=== PATIENT | female | born 1965 | race Caucasian/White ===

== ENCOUNTER → 2018-08-09 07:33 | Outpatient (CLI) | payer OTHER, SELFPAY ==
--- NOTE | 2018-08-09 07:36 | BI_ITS ---
MAMMOGRAPHY - BILATERAL SCREENING REASON FOR EXAM: Female, 52 years old. Routine annual screening examination. PERTINENT HISTORY: Mother with breast cancer. Remote right stereotactic breast biopsies. TECHNIQUE: Digital bilateral breast bambi (3D mammographic acquisition) in the CC and MLO projections. 2-D mediolateral oblique (MLO) and craniocaudad (CC) views of both breasts were obtained. CAD: Full Field Digital Mammography with Computer Added Detection was performed. COMPARISON: Comparison is made with prior operative examination dated July 06, 2017. FINDINGS: Breast Composition: The breasts are extremely dense, which lowers the sensitivity of mammography. There are no dominant masses or suspicious calcifications. 3 tissue clip markers are seen in the upper lateral portion of the right breast. Stable scattered microcalcifications in the upper outer aspect of the right breast. No other significant abnormalities are identified. There has been no significant change since the prior study. BI/SCREENING MAMM (CAD), BILAT IMPRESSION: Stable bilateral screening mammogram. Yearly follow-up mammogram recommended. (A) ASSESSMENT CATEGORY: BIRADS Category 2: Benign. A letter regarding these results will be sent to the patient by the facility within 30 days. Approximately 10% of breast cancers are not detected by mammography. A normal mammogram should not delay biopsy of a clinically suspicious abnormality. [id number] Electronically Signed: Bam Cardenas MD at 8:25 EST Tel [phone], Service support ,
[2018-08-15 14:11] LABS: HPV APTIMA, High Risk Negative (Negative)
== END ==
PROVIDERS: Family Provider Family Medicine; PCP Family Medicine; Referring Provider Obstetrics & Gynecology; Visit Provider Obstetrics & Gynecology
DX: Z12.31 Encounter for screening mammogram for malignant neoplasm of breast (principal); Z12.4 Encounter for screening for malignant neoplasm of cervix
CPT/HCPCS: 77063; 77067; 87624; 88175; G0145

== ENCOUNTER 2019-01-01 13:02 | Emergency (ER) | payer OTHER, SELFPAY ==
[2019-01-01 13:04] VITALS: BP 163/83; PULSE 80; RESP 16; TEMP 36.4; O2SAT 99; BMI 25.9
--- NOTE | 2019-01-01 13:55 | ED.VISSUMM ---
- ER Visit Summary Date of Service: 01/01/19 Chief Complaint: Abdominal pain History of Present Illness: The patient is a 53 F who presents with epigastric abdominal pain that began today. Patient states the pain is intermittent. Patient describes the pain as sharp and cramping. Patient states pain is over the epigastric area. Patient denies any relation with food. Patient states nothing makes it better or worse. Patient admits to nausea but denies any vomiting. Patient states she has been having some diarrhea today. Patient states she took 2 Tums tablets this morning. Patient states she also took a dose of Pepto-Bismol and a dose of Imodium this morning with no improvement. Patient denies any urinary complaints. Physical Examination: Vital signs are stable. Patient is afebrile. Patient is in no acute distress. Oral mucosa is pink and moist. Neck is supple. Trachea is midline. There is no JVD noted. Heart was regular rate and rhythm. Lungs are clear and equal bilateral. Abdomen is soft. Bowel sounds are normal. There is no tenderness. There is no guarding noted. There is no rebound. Test Results: CBC, comprehensive metabolic profile, and lipase were obtained and were within normal limits. Emergency Department Course and Treatment: Patient felt better on reevaluation. Patient was instructed to follow-up with her primary care physician in 5-7 days. Patient understood and was agreeable with the plan. All questions were answered. Disposition: Discharge home Impression: Epigastric abdominal pain This note was generated with [employer] dictation software. It may contain incorrect words, spelling, and punctuation that were not noted in review of the chart prior to signing ED Disposition - Plan for ED Patient: Disposition: Home or Assisted Living Diagnosis: Epigastric abdominal pain Instructions: ED Abdominal Pain Unkn Cause Referrals: Agapito Keene MD [Primary Care Provider] - 5-7 Days
[2019-01-01 14:22] LABS: Absolute Lymphocyte Count 2.01 X10^3/ul (0.83-4.51); Absolute Neutrophil Count 4.8 X10^3/uL (2.0-7.7); Basophil# 0.01 X10^3/uL; Basophil% 0.1 % (0-1); Eosinophil# 0.03 X10^3/uL; Eosinophils% 0.4 % (0-5); Hematocrit 38.8 % (37-47); Hemoglobin 12.9 g/dl (12.0-15.0); Lymphocyte # 2.01 X10^3/ul (4.0); Lymphocyte % 27.8 % (19-41); Mean Corp Hgb Conc 33.2 g/gl (32-36); Mean Corpuscular Hgb 29.5 pg (27.0-32.0); Mean Corpuscular Volume 88.6 fL (81-99); Monocyte# 0.39 X10^3/uL; Monocyte% 5.4 % (0-10); Neutrophil # 4.77 X10^3/uL (2.7-7.7); Neutrophil % 66.2 % (47-70); Platelet Count 228 K/mm3 (150-450); RBC Distribution Width CV 13.1 % (11.6-14.6); RBC Distribution Width SD 42.7 fl (35.1-43.9); Red Blood Count 4.38 M/mm3 (4.2-5.4); White Blood Count 7.2 K/mm3 (4.4-11.0)
[2019-01-01 14:25] LABS: POSITIVE COUNT NO; POSITIVE DIFFERENTIAL NO; POSITIVE MORPHOLOGY NO
[2019-01-01 14:33] LABS: AST(SGOT) 18 U/L (15-37); Alanine Aminotransfer ALT/SGPT 24 U/L (13-56); Albumin, Serum 3.7 g/dL (3.2-5.0); Alkaline Phosphatase 64 U/L (45-117); Anion Gap 8 (5-15); BUN 15 mg/dL (7-18); BUN/Creat Ratio 16.7 RATIO (10-20); Calcium,Total 8.9 mg/dL (8.5-10.1); Chloride 105 mmol/L (98-107); EST Glomerular Filtration Rate 70 mL/min (>60); Est Glom Filt Rate - Afr Amer 85 mL/min (>60); Estimated Creatinine Clearance 51.92 ml/min; Globulin 3.8 g/dL (2.2-4.2); Glucose 83 mg/dL (74-106); Lipase 142 U/L (73-393); Potassium 3.6 mmol/L (3.5-5.1); Protein, Total 7.5 g/dL (6.4-8.2); Sodium Level 140 mmol/L (136-145)
[2019-01-01 14:59] VITALS: BP 137/78; PULSE 78; RESP 16; O2SAT 100
== END 2019-01-01 15:08 | disposition home or self-care (01) ==
PROVIDERS: Emergency Provider Emergency Medicine; Family Provider Family Medicine; PCP Family Medicine
DX: R10.13 Epigastric pain (principal); R11.0 Nausea; R07.9 Chest pain, unspecified
CPT/HCPCS: 80053; 83690; 85025; 99283; A4216

== ENCOUNTER → 2019-01-27 | Outpatient (CLI) | payer OTHER, SELFPAY ==
[2019-01-08 14:01] VITALS: BMI 25.9
[2019-01-27 11:05] LABS: Cholesterol 218 mg/dL (200); High Density Lipoprotein 60 mg/dL; Triglycerides 86 mg/dL; Very Low Density Lipoprotein 17 mg/dL (5-40)
== END | disposition home or self-care (01) ==
PROVIDERS: Family Provider Internal Medicine; PCP Internal Medicine; Referring Provider Internal Medicine; Visit Provider Internal Medicine
DX: I10 Essential (primary) hypertension (principal)
CPT/HCPCS: 36415; 80061

== ENCOUNTER → 2019-08-13 09:06 | Outpatient (CLI) | payer OTHER, SELFPAY ==
[2019-08-13 08:23] VITALS: BMI 25.9
--- NOTE | 2019-08-13 09:21 | EKG12_ITS ---
Test Reason : ROUTINE Blood Pressure : / mmHG Vent. Rate : 062 BPM Atrial Rate : 062 BPM P-R Int : 126 ms QRS Dur : 084 ms QT Int : 404 ms P-R-T Axes : 035 035 038 degrees QTc Int : 410 ms Normal sinus rhythm Normal ECG Confirmed by JEFF WILLIAM, FORTINO ([id number]), editor publications CHERELLE SALEH ([id number]) on 08/14/2019 1:56:06 PM Referred By: Guillaume Dasilva Confirmed By:FORTINO AGUILAR MD
[2019-08-13 10:32] LABS: Anion Gap 6 (5-15); BUN 18 mg/dL (7-18); BUN/Creat Ratio 18.9 RATIO (10-20); Calcium,Total 9.1 mg/dL (8.5-10.1); Chloride 102 mmol/L (98-107); Creatinine, Serum 0.95 mg/dL (0.55-1.02); EST Glomerular Filtration Rate 65 mL/min (>60); Est Glom Filt Rate - Afr Amer 79 mL/min (>60); Glucose 87 mg/dL (74-106); Potassium 3.3 mmol/L (3.5-5.1); Sodium Level 138 mmol/L (136-145)
== END ==
PROVIDERS: Family Provider Internal Medicine; PCP Internal Medicine; Referring Provider Internal Medicine; Visit Provider Internal Medicine
DX: I10 Essential (primary) hypertension (principal)
CPT/HCPCS: 36415; 80048; 93005

== ENCOUNTER → 2019-10-10 16:28 | Outpatient (CLI) | payer OTHER, SELFPAY ==
[2019-10-10 16:28] VITALS: BMI 25.7
[2019-10-10 17:23] LABS: Anion Gap 4 (5-15); BUN 22 mg/dL (7-18); BUN/Creat Ratio 17.1 RATIO (10-20); Calcium,Total 9.4 mg/dL (8.5-10.1); Chloride 102 mmol/L (98-107); Creatinine, Serum 1.29 mg/dL (0.55-1.02); EST Glomerular Filtration Rate 46 mL/min (>60); Est Glom Filt Rate - Afr Amer 55 mL/min (>60); Glucose 90 mg/dL (74-106); Potassium 3.1 mmol/L (3.5-5.1); Sodium Level 138 mmol/L (136-145)
== END ==
PROVIDERS: Family Provider Internal Medicine; PCP Internal Medicine; Referring Provider Nurse Practitioner Family; Visit Provider Nurse Practitioner Family
DX: I10 Essential (primary) hypertension (principal)
CPT/HCPCS: 36415; 80048

== ENCOUNTER → 2019-10-25 16:32 | Outpatient (CLI) | payer OTHER, SELFPAY ==
[2019-10-10 16:28] VITALS: BMI 25.7
[2019-10-25 17:25] LABS: Anion Gap 5 (5-15); BUN 21 mg/dL (7-18); BUN/Creat Ratio 19.4 RATIO (10-20); Calcium,Total 9.2 mg/dL (8.5-10.1); Chloride 99 mmol/L (98-107); Creatinine, Serum 1.08 mg/dL (0.55-1.02); EST Glomerular Filtration Rate 56 mL/min (>60); Est Glom Filt Rate - Afr Amer 68 mL/min (>60); Glucose 91 mg/dL (74-106); Potassium 3.1 mmol/L (3.5-5.1); Sodium Level 137 mmol/L (136-145)
== END ==
PROVIDERS: PCP Internal Medicine; Referring Provider Nurse Practitioner Family; Visit Provider Nurse Practitioner Family
DX: I10 Essential (primary) hypertension (principal)
CPT/HCPCS: 36415; 80048

== ENCOUNTER → 2019-11-28 16:32 | Outpatient (CLI) | payer OTHER, SELFPAY ==
[2019-10-10 16:28] VITALS: BMI 25.7
[2019-11-28 17:28] LABS: Anion Gap 4 (5-15); BUN 15 mg/dL (7-18); BUN/Creat Ratio 15.3 RATIO (10-20); Calcium,Total 9.3 mg/dL (8.5-10.1); Chloride 102 mmol/L (98-107); Creatinine, Serum 0.98 mg/dL (0.55-1.02); EST Glomerular Filtration Rate 63 mL/min (>60); Est Glom Filt Rate - Afr Amer 76 mL/min (>60); Glucose 85 mg/dL (74-106); Potassium 3.3 mmol/L (3.5-5.1); Sodium Level 137 mmol/L (136-145)
== END ==
PROVIDERS: PCP Internal Medicine; Referring Provider Nurse Practitioner Family; Visit Provider Nurse Practitioner Family
DX: I10 Essential (primary) hypertension (principal)
CPT/HCPCS: 36415; 80048

== ENCOUNTER → 2020-02-20 16:45 | Outpatient (CLI) | payer OTHER, SELFPAY ==
[2019-10-10 16:28] VITALS: BMI 25.7
[2020-02-20 17:44] LABS: Anion Gap 7 (5-15); BUN 17 mg/dL (7-18); BUN/Creat Ratio 18.2 RATIO (10-20); Chloride 101 mmol/L (98-107); Creatinine, Serum 0.94 mg/dL (0.55-1.02); EST Glomerular Filtration Rate 66 mL/min (>60); Est Glom Filt Rate - Afr Amer 80 mL/min (>60); Glucose 90 mg/dL (74-106); Potassium 3.8 mmol/L (3.5-5.1); Sodium Level 137 mmol/L (136-145)
== END ==
PROVIDERS: PCP Internal Medicine; Referring Provider Nurse Practitioner Family; Visit Provider Nurse Practitioner Family
DX: I10 Essential (primary) hypertension (principal)
CPT/HCPCS: 36415; 80048

== ENCOUNTER → 2020-05-02 06:38 | Outpatient (CLI) | payer OTHER, SELFPAY ==
[2020-04-03 13:54] VITALS: BMI 25.7
[2020-05-02 08:34] LABS: Anion Gap 3 (5-15); BUN 18 mg/dL (7-18); BUN/Creat Ratio 15.5 RATIO (10-20); Calcium,Total 8.9 mg/dL (8.5-10.1); Chloride 107 mmol/L (98-107); Cholesterol 197 mg/dL (200); Creatinine, Serum 1.16 mg/dL (0.55-1.02); EST Glomerular Filtration Rate 52 mL/min (>60); Est Glom Filt Rate - Afr Amer 63 mL/min (>60); Glucose 86 mg/dL (74-106); High Density Lipoprotein 52 mg/dL; Potassium 3.6 mmol/L (3.5-5.1); Sodium Level 140 mmol/L (136-145); Triglycerides 120 mg/dL; Very Low Density Lipoprotein 24 mg/dL (5-40)
== END ==
PROVIDERS: PCP Internal Medicine; Referring Provider Internal Medicine; Visit Provider Internal Medicine
DX: I10 Essential (primary) hypertension (principal); E78.5 Hyperlipidemia, unspecified
CPT/HCPCS: 36415; 80048; 80061

== ENCOUNTER → 2020-08-29 10:12 | Outpatient (CLI) | payer OTHER, SELFPAY ==
[2020-08-29 11:29] LABS: Anion Gap 3 (5-15); BUN 16 mg/dL (7-18); BUN/Creat Ratio 17.1 RATIO (10-20); Calcium,Total 9.1 mg/dL (8.5-10.1); Chloride 104 mmol/L (98-107); Creatinine, Serum 0.94 mg/dL (0.55-1.02); EST Glomerular Filtration Rate 66 mL/min (>60); Est Glom Filt Rate - Afr Amer 80 mL/min (>60); Glucose 83 mg/dL (74-106); Potassium 3.6 mmol/L (3.5-5.1); Sodium Level 139 mmol/L (136-145)
== END ==
PROVIDERS: PCP Internal Medicine; Referring Provider Internal Medicine; Visit Provider Internal Medicine
DX: I10 Essential (primary) hypertension (principal)
CPT/HCPCS: 36415; 80048

== ENCOUNTER → 2020-10-01 10:58 | Outpatient (CLI) | payer OTHER, SELFPAY ==
[2020-09-24 18:23] VITALS: BMI 26.2
--- NOTE | 2020-10-01 11:14 | EKG12_ITS ---
Test Reason : HTN,PALPS Blood Pressure : / mmHG Vent. Rate : 054 BPM Atrial Rate : 054 BPM P-R Int : 120 ms QRS Dur : 084 ms QT Int : 418 ms P-R-T Axes : 034 041 032 degrees QTc Int : 396 ms Sinus bradycardia Otherwise normal ECG Confirmed by KATHY WILLIAM, DEWEY ([id number]), early childhood aide classroom BEATA GALVIN ([id number]) on 10/02/2020 10:25:44 AM Referred By: Guillaume Dasilva Confirmed By:CIRO CHAVEZ MD
[2020-10-01 11:44] LABS: Absolute Lymphocyte Count 2.37 X10^3/uL (0.83-4.51); Absolute Neutrophil Count 2.3 X10^3/uL (2.0-7.7); Basophil# 0.02 X10^3/uL; Basophil% 0.4 % (0-1); Eosinophil# 0.08 X10^3/uL; Eosinophils% 1.5 % (0-5); Hematocrit 37.9 % (37-47); Hemoglobin 12.2 g/dL (12.0-15.0); Lymphocyte # 2.37 X10^3/ul (4.0); Lymphocyte % 45.7 % (19-41); Mean Corp Hgb Conc 32.2 g/dL (32-36); Mean Corpuscular Hgb 29.2 pg (27.0-32.0); Mean Corpuscular Volume 90.7 fL (81-99); Mean Platelet Vol. 8.7 fl (6.2-12.0); Monocyte# 0.43 X10^3/uL; Monocyte% 8.3 % (0-10); NRBC Flagged by Analyzer 0 % (0-5); Neutrophil # 2.27 X10^3/uL (2.7-7.7); Neutrophil % 43.7 % (47-70); Platelet Count 197 K/mm3 (150-450); RBC Distribution Width CV 12.7 % (11.6-14.6); RBC Distribution Width SD 41.8 fl (35.1-43.9); Red Blood Count 4.18 M/mm3 (4.2-5.4); White Blood Count 5.2 K/mm3 (4.4-11.0)
[2020-10-01 12:09] LABS: AST(SGOT) 22 U/L (15-37); Alanine Aminotransfer ALT/SGPT 36 U/L (13-56); Albumin, Serum 3.6 g/dL (3.2-5.0); Alkaline Phosphatase 56 U/L (45-117); Anion Gap 3 (5-15); BUN 12 mg/dL (7-18); BUN/Creat Ratio 12.3 RATIO (10-20); Calcium,Total 8.9 mg/dL (8.5-10.1); Chloride 107 mmol/L (98-107); Creatinine, Serum 0.97 mg/dL (0.55-1.02); EST Glomerular Filtration Rate 63 mL/min (>60); Est Glom Filt Rate - Afr Amer 77 mL/min (>60); Globulin 3.7 g/dL (2.2-4.2); Glucose 84 mg/dL (74-106); Potassium 4.2 mmol/L (3.5-5.1); Protein, Total 7.3 g/dL (6.4-8.2); Sodium Level 140 mmol/L (136-145); T4 Free Direct 0.87 ng/dL (0.76-1.46); Thyroid Stim Hormone (TSH) 5.05 uIU/mL (0.358-3.74)
== END ==
PROVIDERS: PCP Internal Medicine; Referring Provider Internal Medicine; Visit Provider Internal Medicine
DX: R00.2 Palpitations (principal); F32.9 Major depressive disorder, single episode, unspecified; F41.9 Anxiety disorder, unspecified; I10 Essential (primary) hypertension
CPT/HCPCS: 36415; 80053; 84439; 84443; 85025; 93005

== ENCOUNTER → 2020-10-21 17:30 | Outpatient (CLI) | payer OTHER, SELFPAY ==
[2020-09-24 18:23] VITALS: BMI 26.2
--- NOTE | 2020-10-21 16:44 | BI_ITS ---
MAMMOGRAPHY - BILATERAL SCREENING REASON FOR EXAM: Female, 54 years old. Routine annual screening examination. PERTINENT HISTORY: Mother with breast cancer. Prior right stereotactic breast biopsy. TECHNIQUE: Digital bilateral breast wm (3D mammographic acquisition) in the CC and MLO projections. 2-D mediolateral oblique (MLO) and craniocaudad (CC) views of both breasts were obtained. CAD: Full Field Digital Mammography with Computer Added Detection was performed. COMPARISON: Comparison is made with prior study dated 08/09/2018. FINDINGS: Breast Composition: The breasts are extremely dense, which lowers the sensitivity of mammography. There are no dominant masses or suspicious calcifications. 3 tissue clip markers are once again seen in the upper lateral portion of the right breast. No other significant abnormalities are identified. There has been no significant change since the prior study. BI/SCRN MAMM (CAD)W/WM BILAT IMPRESSION: Stable bilateral screening mammogram. Yearly follow-up mammogram recommended. (A) ASSESSMENT CATEGORY: BIRADS Category 2: Benign. A letter regarding these results will be sent to the patient by the facility within 30 days. Approximately 10% of breast cancers are not detected by mammography. A normal mammogram should not delay biopsy of a clinically suspicious abnormality. [id number] Electronically Signed: Bam Cardenas MD at 8:37 EST , Service support ,
== END ==
PROVIDERS: PCP Internal Medicine; Referring Provider Nurse Practitioner Women's Health; Visit Provider Nurse Practitioner Women's Health
DX: Z12.31 Encounter for screening mammogram for malignant neoplasm of breast (principal)
CPT/HCPCS: 77063; 77067

== ENCOUNTER → 2020-11-22 10:20 | Outpatient (CLI) | payer OTHER, SELFPAY ==
[2020-09-24 18:23] VITALS: BMI 26.2
[2020-11-22 11:53] LABS: T4 Free Direct 0.81 ng/dL (0.76-1.46); Thyroid Stim Hormone (TSH) 5.49 uIU/mL (0.358-3.74)
[2020-11-24 13:30] LABS: Anion Gap 6 (5-15); BUN 15 mg/dL (7-18); BUN/Creat Ratio 14.9 RATIO (10-20); Chloride 106 mmol/L (98-107); Creatinine, Serum 1.01 mg/dL (0.55-1.02); EST Glomerular Filtration Rate 61 mL/min (>60); Est Glom Filt Rate - Afr Amer 73 mL/min (>60); Glucose 74 mg/dL (74-106); Potassium 3.9 mmol/L (3.5-5.1); Sodium Level 140 mmol/L (136-145)
== END ==
PROVIDERS: PCP Internal Medicine; Referring Provider Internal Medicine; Visit Provider Internal Medicine
DX: R94.6 Abnormal results of thyroid function studies (principal)
CPT/HCPCS: 36415; 80048; 84439; 84443

== ENCOUNTER → 2021-05-23 08:43 | Outpatient (CLI) | payer OTHER, SELFPAY ==
[2021-05-23 09:41] LABS: Absolute Lymphocyte Count 2.82 X10^3/uL (0.83-4.51); Absolute Neutrophil Count 1.9 X10^3/uL (2.0-7.7); Basophil# 0.03 X10^3/uL; Basophil% 0.6 % (0-1); Eosinophil# 0.08 X10^3/uL; Eosinophils% 1.5 % (0-5); Hematocrit 38.1 % (37-47); Hemoglobin 12.6 g/dL (12.0-15.0); Lymphocyte # 2.82 X10^3/ul (0.83-4.51); Mean Corp Hgb Conc 33.1 g/dL (32-36); Mean Corpuscular Hgb 30.5 pg (27.0-32.0); Mean Corpuscular Volume 92.3 fL (81-99); Mean Platelet Vol. 9.2 fl (6.2-12.0); Monocyte# 0.41 X10^3/uL; Monocyte% 7.9 % (0-10); NRBC Flagged by Analyzer 0 % (0-5); Neutrophil # 1.86 X10^3/uL (2.7-7.7); Neutrophil % 35.6 % (47-70); Platelet Count 205 K/mm3 (150-450); RBC Distribution Width SD 41.1 fl (35.1-43.9); Red Blood Count 4.13 M/mm3 (4.2-5.4); White Blood Count 5.2 K/mm3 (4.4-11.0)
[2021-05-23 10:13] LABS: AST(SGOT) 21 U/L (15-37); Alanine Aminotransfer ALT/SGPT 28 U/L (13-56); Albumin, Serum 3.8 g/dL (3.2-5.0); Alkaline Phosphatase 51 U/L (45-117); Anion Gap 8 (5-15); BUN 18 mg/dL (7-18); BUN/Creat Ratio 18.4 RATIO (10-20); Calcium,Total 9.1 mg/dL (8.5-10.1); Chloride 106 mmol/L (98-107); Cholesterol 218 mg/dL (200); Creatinine, Serum 0.98 mg/dL (0.55-1.02); EST Glomerular Filtration Rate 63 mL/min (>60); Est Glom Filt Rate - Afr Amer 76 mL/min (>60); Glucose 87 mg/dL (74-106); High Density Lipoprotein 54 mg/dL; Potassium 3.9 mmol/L (3.5-5.1); Protein, Total 7.8 g/dL (6.4-8.2); Sodium Level 143 mmol/L (136-145); T4 Free Direct 0.88 ng/dL (0.76-1.46); Thyroid Stim Hormone (TSH) 6.75 uIU/mL (0.358-3.74); Triglycerides 90 mg/dL; Very Low Density Lipoprotein 18 mg/dL (5-40)
== END ==
PROVIDERS: PCP Internal Medicine; Visit Provider Internal Medicine
DX: I10 Essential (primary) hypertension (principal); E78.5 Hyperlipidemia, unspecified; E03.8 Other specified hypothyroidism
CPT/HCPCS: 36415; 80053; 80061; 84439; 84443; 85025

== ENCOUNTER 2021-10-22 07:41 | Outpatient (CLI) | payer OTHER, SELFPAY ==
--- NOTE | 2021-10-22 07:44 | BI_ITS ---
MAMMOGRAPHY - BILATERAL SCREENING REASON FOR EXAM: Female, 55 years old. Routine annual screening examination. PERTINENT HISTORY: Mother with breast cancer. Prior right stereotactic breast biopsy. TECHNIQUE: Digital bilateral breast wm (3D mammographic acquisition) in the CC and MLO projections. 2-D mediolateral oblique (MLO) and craniocaudad (CC) views of both breasts were obtained. CAD: Full Field Digital Mammography with Computer Added Detection was performed. COMPARISON: Comparison is made with prior study dated 10/21/2020 and 08/09/2018. FINDINGS: Breast Composition: The breasts are extremely dense, which lowers the sensitivity of mammography. There are no dominant masses or suspicious calcifications. 3 tissue clip markers are once again seen in the upper lateral portion of the right breast. No other significant abnormalities are identified. There has been no significant change since the prior study. BI/SCRN MAMM (CAD)W/WM BILAT IMPRESSION: Stable bilateral screening mammogram. Yearly follow-up mammogram recommended. (A) ASSESSMENT CATEGORY: BIRADS Category 2: Benign. A letter regarding these results will be sent to the patient by the facility within 30 days. Approximately 10% of breast cancers are not detected by mammography. A normal mammogram should not delay biopsy of a clinically suspicious abnormality. [id number] Electronically Signed: Bam Cardenas MD at 9:41 EST , Service support ,
[2021-10-22 09:10] LABS: Anion Gap 4 (5-15); BUN 17 mg/dL (7-18); BUN/Creat Ratio 16.8 RATIO (10-20); Calcium,Total 9.5 mg/dL (8.5-10.1); Chloride 107 mmol/L (98-107); Cholesterol 235 mg/dL (200); Creatinine, Serum 1.01 mg/dL (0.55-1.02); EST Glomerular Filtration Rate 60 mL/min (>60); Est Glom Filt Rate - Afr Amer 73 mL/min (>60); Glucose 88 mg/dL (74-106); High Density Lipoprotein 66 mg/dL; Potassium 3.8 mmol/L (3.5-5.1); Sodium Level 140 mmol/L (136-145); T4 Free Direct 0.88 ng/dL (0.76-1.46); Thyroid Stim Hormone (TSH) 8.22 uIU/mL (0.358-3.74); Triglycerides 98 mg/dL; Very Low Density Lipoprotein 20 mg/dL (5-40)
[2021-10-27 16:55] LABS: Aldosterone, Serum 9.4 ng/dL (0.0-30.0)
== END 2021-10-22 23:59 | disposition short-term general hospital (02) ==
PROVIDERS: PCP Family Medicine; Referring Provider Nurse Practitioner Women's Health; Visit Provider Nurse Practitioner Women's Health
DX: Z12.31 Encounter for screening mammogram for malignant neoplasm of breast (principal); E87.6 Hypokalemia; Z13.6 Encounter for screening for cardiovascular disorders; I10 Essential (primary) hypertension; R68.89 Other general symptoms and signs
CPT/HCPCS: 36415; 77063; 77067; 80048; 80061; 82088; 84439; 84443

== ENCOUNTER → 2022-01-28 | Outpatient (CLI) | payer OTHER, SELFPAY ==
[2022-01-28 10:10] LABS: Absolute Lymphocyte Count 2.56 X10^3/uL (0.83-4.51); Absolute Neutrophil Count 2.4 X10^3/uL (2.0-7.7); Basophil# 0.02 X10^3/uL; Basophil% 0.4 % (0-1); Eosinophil# 0.07 X10^3/uL; Eosinophils% 1.3 % (0-5); Hematocrit 37.6 % (37-47); Hemoglobin 12.6 g/dL (12.0-15.0); Lymphocyte # 2.56 X10^3/ul (0.83-4.51); Lymphocyte % 45.7 % (19-41); Mean Corp Hgb Conc 33.5 g/dL (32-36); Mean Corpuscular Hgb 30.6 pg (27.0-32.0); Mean Corpuscular Volume 91.3 fL (81-99); Mean Platelet Vol. 8.9 fl (6.2-12.0); Monocyte# 0.55 X10^3/uL; Monocyte% 9.8 % (0-10); NRBC Flagged by Analyzer 0 % (0-5); Neutrophil # 2.39 X10^3/uL (2.7-7.7); Neutrophil % 42.6 % (47-70); Platelet Count 228 K/mm3 (150-450); RBC Distribution Width CV 11.9 % (11.6-14.6); RBC Distribution Width SD 40.1 fl (35.1-43.9); Red Blood Count 4.12 M/mm3 (4.2-5.4); White Blood Count 5.6 K/mm3 (4.4-11.0)
[2022-01-28 10:42] LABS: ALB/GLOB Ratio 0.9 RATIO (0.9-2.4); AST(SGOT) 22 U/L (15-37); Alanine Aminotransfer ALT/SGPT 33 U/L (13-56); Albumin, Serum 3.5 g/dL (3.2-5.0); Alkaline Phosphatase 69 U/L (45-117); Anion Gap 4 (5-15); BUN 16 mg/dL (7-18); BUN/Creat Ratio 18.2 RATIO (10-20); Calcium,Total 9.1 mg/dL (8.5-10.1); Chloride 108 mmol/L (98-107); Creatinine, Serum 0.88 mg/dL (0.55-1.02); EST Glomerular Filtration Rate 71 mL/min (>60); Est Glom Filt Rate - Afr Amer 86 mL/min (>60); Globulin 3.7 g/dL (2.2-4.2); Glucose 84 mg/dL (74-106); Potassium 3.8 mmol/L (3.5-5.1); Protein, Total 7.2 g/dL (6.4-8.2); Sodium Level 140 mmol/L (136-145)
== END | disposition home or self-care (01) ==
PROVIDERS: PCP Family Medicine; Referring Provider Nurse Practitioner Adult Health; Visit Provider Nurse Practitioner Adult Health
DX: R10.13 Epigastric pain (principal)
CPT/HCPCS: 36415; 80053; 85025

== ENCOUNTER → 2022-02-16 | Outpatient (CLI) | payer OTHER, SELFPAY ==
--- NOTE | 2022-02-16 07:57 | CT_ITS ---
STUDY: CT ABDOMEN AND PELVIS WITH CONTRAST REASON FOR EXAM: Female, 56 years old. Recurrent epigastric pain, early satiety, diarrhea RADIATION DOSAGE (If Supplied By Facility): CTDIvol = ( 11.92 ) mGy, DLP = ( 483.84 ) mGycm TECHNIQUE: Transaxial images were obtained from the dome of the diaphragm to the symphysis pubis with oral contrast. Oral and amp;amp; IV Readi-CAT and amp;amp; 100mL Isovue-300 was administered. Sagittal and coronal images were reconstructed. Individualized dose optimization techniques were used for this CT. COMPARISON: None. FINDINGS: The visualized lung bases are unremarkable. The visualized portions of the heart are within normal limits. There is decreased attenuation of the liver consistent with steatosis. Normal gallbladder and extrahepatic biliary system. Normal spleen. Normal pancreas. Normal bilateral adrenal glands. Normal right kidney. Normal left kidney. Normal visualized stomach. Normal small intestine. Normal colon. The appendix is visualized and appears normal. There is scattered atherosclerotic calcification of the abdominal aorta, without a demonstrated aneurysm. Normal inferior vena cava. There is borderline retroperitoneal lymphadenopathy with enlarged nodes no greater than 10mm in the short axis diameter. Normal urinary bladder. There are bilateral tubal ligation clips. Normal abdominal wall. Normal osseous structures. CT/Abdomen/Pelvis WITH Contrast IMPRESSION: No acute abnormality is seen. Electronically Signed: Bam Cardenas MD at 10:04 EDT ,
== END | disposition home or self-care (01) ==
PROVIDERS: PCP Family Medicine; Visit Provider Nurse Practitioner Adult Health
DX: R10.13 Epigastric pain (principal); R68.81 Early satiety; R19.7 Diarrhea, unspecified
CPT/HCPCS: 74177; Q9967

== ENCOUNTER → 2022-02-18 | Outpatient (CLI) | payer OTHER, SELFPAY ==
[2022-02-18 08:55] LABS: Erythrocyte Sedimentation Rate 27 mm/hr (0-30)
[2022-02-18 09:22] LABS: Amylase 80 U/L (25-115); CRP < 2.90 mg/L (0.0-3.0); Cholesterol 205 mg/dL (200); GGTP 7 U/L (5-55); High Density Lipoprotein 55 mg/dL; LDH 176 U/L (84-246); Lipase 156 U/L (73-393); Thyroid Stim Hormone (TSH) 0.54 uIU/mL (0.358-3.74); Triglycerides 73 mg/dL; Very Low Density Lipoprotein 15 mg/dL (5-40)
[2022-02-19 15:08] LABS: Anti-Centromere B Ab <0.2 AI (0.0-0.9); Anti-Chromatin <0.2 AI (0.0-0.9); Anti-Jo <0.2 AI (0.0-0.9); Anti-Scleroderma-70 AB <0.2 AI (0.0-0.9); RNP Ab <0.2 AI (0.0-0.9); SJOGREN'S Anti-SS-A test 0.2 AI (0.0-0.9); SJOGREN'S Anti-SS-B test < 0.2 AI (0.0-0.9); Smith Ab <0.2 AI (0.0-0.9)
[2022-02-19 16:19] LABS: Anti-dsDNA Ab 2 IU/mL (0-9)
[2022-03-02 09:07] LABS: Endomysial Antibody IgA Negative (Negative); Immunoglobulin A 265 mg/dL (87-352)
[2022-03-02 10:38] LABS: Gastrin, Serum < 10 pg/mL (0-115); Renin, Plasma 0.292 ng/mL/hr (0.167-5.380); t-Transglutaminase IgA <2 U/mL (0-3)
== END | disposition home or self-care (01) ==
LOC: PAVLAB 08:21
PROVIDERS: PCP Family Medicine; Referring Provider Nurse Practitioner Adult Health; Visit Provider Nurse Practitioner Adult Health
DX: I10 Essential (primary) hypertension (principal); E87.6 Hypokalemia; E03.9 Hypothyroidism, unspecified; E78.2 Mixed hyperlipidemia; Z13.6 Encounter for screening for cardiovascular disorders
CPT/HCPCS: 36415; 80061; 82088; 82150; 82784; 82941; 82977; 83516; 83615; 83690; 84244; 84443; 85652; 86140; 86225; 86235; 86255

== ENCOUNTER → 2022-03-18 | Outpatient (CLI) | payer OTHER, SELFPAY ==
[2022-03-28 07:45] LABS: H. PYLORI STOOL AG Negative (Negative); Pancreatic Elastase, Fecal 306 (>200)
== END | disposition home or self-care (01) ==
LOC: LABSPEC 09:38
PROVIDERS: PCP Family Medicine; Referring Provider Nurse Practitioner Adult Health; Visit Provider Nurse Practitioner Adult Health
DX: R10.13 Epigastric pain (principal)
CPT/HCPCS: 82653; 82705; 83630; 83993

== ENCOUNTER 2022-04-22 05:25 | Day surgery (SDC) | payer OTHER, SELFPAY ==
[2022-04-22] VITALS (7 sets, daily range): BP systolic 98–128; BP diastolic 57–88; PULSE 60–78; RESP 16–18; TEMP 36.1–36.9; O2SAT 95–100; BMI 25.7
--- NOTE | 2022-04-22 | COLBX_PTH ---
PATIENT: JENNIFER MAZARIEGOS LOC: EN U#:[id number] AGE/SX: 56/F ROOM: RE04/22/[address]: Dr. Rashad Britt DO : 1965 BED: DIS: 04/22/2022 SPEC #: [id number] RECD: 04/22/22 10:41 STATUS: ION DONOVAN #: [id number] RAMÍREZ: 04/22/22 00:[address]: Rashad Britt DEPT: SURGICAL PATHOLOGY RECD BY: Devonte Costa ENTERED: 04/22/22 10:43 SP TYPE: COLON BX OTHR DR: Dr. Leighton Alexander MD Tissues: A - Duodenum, NOS B - Pylorus C - Gastric mucous membrane D - Gastric mucous membrane E - Esophageal mucous membrane F - Ileum, NOS G - COLON BIOPSY Procedures: Special Stain Group II Surgery Specimen Level IV Alcian Blue/PAS (control) HEADER OPERATION: Colonoscopy with biopsies, EGD with biopsies ([facility]) PRE-OP DIAGNOSIS: Epigastric pain, diarrhea, early satiety TISSUE SUBMITTED: A ? Duodenum biopsy, B ? Pylorus biopsy, C ? Gastric body biopsy, D ? Gastric cardia biopsy, E ? Distal esophagus biopsy, F ? Terminal ileum biopsy, G ? Random colon biopsy MICROSCOPIC DIAGNOSIS A. Duodenum, biopsy: Mild nonspecific chronic inflammation. B. Gastric pylorus, biopsy: Chronic gastritis. See comment. C. Gastric body, biopsy: Chronic gastritis, moderate to severe. D. Gastric cardia, biopsy: Chronic gastritis. E. Distal esophagus, biopsy: Gastric mucosa with chronic inflammation. No evidence of goblet cell metaplasia. See comment. F. Terminal ileum, biopsy: No pathologic change. G. Colon, random biopsy: Focal chronic active gastritis. See comment. AM:ivelisse 04/23/2022 COMMENT B. The results of immunohistochemistry for Helicobacter pylori will be reported separately ([id number]). E. Alcian blue/PAS stain with matched control supports the above diagnosis. G. Sections show focal crypt abscesses, cryptitis and microscopic non-necrotizing granulomas. No glandular distortion is identified and there are no fissuring ulcers or transmural lymphoid aggregates. Clinical correlation is suggested. MICROSCOPIC DESCRIPTION Slides are reviewed. GROSS DESCRIPTION A - Received in fixative is one container labeled with the patient's name and designated duodenum. The specimen consists of multiple irregular fragments of light hurtado soft tissue that in aggregate measure 1 x 0.5 x 0.1 cm. The specimen is totally submitted in one cassette. B - Received in fixative is one container labeled with the patient's name and designated pylorus. The specimen consists of one irregular fragment of light hurtado soft tissue that measures 0.5 x 0.5 x 0.1 cm. The specimen is totally submitted in one cassette. C - Received in fixative is one container labeled with the patient's name and designated gastric body biopsy. The specimen consists of multiple irregular fragments of light hurtado soft tissue that in aggregate measure 1 x 0.2 x 0.1 cm. The specimen is totally submitted in one cassette. D - Received in fixative is one container labeled with the patient's name and designated gastric cardia. The specimen consists of one irregular fragment of light hurtado soft tissue that measures 0.5 x 0.5 x 0.1 cm. The specimen is totally submitted in one cassette. E - Received in fixative is one container labeled with the patient's name and designated distal esophagus biopsy. The specimen consists of two irregular fragments of light hurtado soft tissue that in aggregate measure 0.8 x 0.6 x 0.1 cm. The specimen is totally submitted in one cassette. F - Received in fixative is one container labeled with the patient's name and designated terminal ileum biopsy. The specimen consists of two irregular fragments of light hurtado soft tissue that in aggregate measure 0.8 x 0.7 x 0.1 cm. The specimen is totally submitted in one cassette. G - Received in fixative is one container labeled with the patient's name and designated random colon. The specimen consists of multiple irregular fragments of light hurtado soft tissue that in aggregate measure 2.5 x 1 x 0.1 cm. The specimen is totally submitted in one cassette. / AM:ivelisse 04/22/2022 TC:2 CPT: 97094 x7, 63026
[2022-04-22] MEDS: Lactated Ringers 1,000 ML 15 ML IV (06:03)
--- NOTE | 2022-04-22 06:30 | IMM_PTH ---
PATIENT: JENNIFER MAZARIEGOS LOC: EN U#:[id number] AGE/SX: 56/F ROOM: RE04/22/[address]: Dr. Rashad Britt DO : 1965 BED: DIS: 04/22/2022 SPEC #: [id number] RECD: 04/22/22 12:26 STATUS: ION RETodd #: [id number] RAMÍREZ: 04/22/22 06:[address]: Rashad Britt DEPT: IMMUNOHISTOCHEMISTRY RECD BY: Kaity Arteaga ENTERED: 04/22/22 12:28 SP TYPE: IMMUNO OTHR DR: Dr. Leighton Alexander MD Tissues: B - Pyloric portion of stomach Procedures: H Pylori (initial) PHYSICIAN & [place] [phone] SPECIMEN INFORMATION: Tissue Source: B ? Pylorus biopsy Clinical Info: Epigastric pain, diarrhea, early satiety Specimen Number: [id number] CPT code: 18714 METHODOLOGY: Deparaffinized sections of prefer/formalin-fixed tissue or PAP/DQ stained slides are incubated with monoclonal/polyclonal antibodies/oligonucleotide probes. Localization is made via biotin free immunoperoxidase method. Appropriate controls are performed and reacted as expected. Results on target cell population are indicated in the following table: RESULTS: ANTIBODY / CLONE RESULT Block C H Pylori (polyclonal) negative These tests were developed and their performance characteristics determined by [facility]. They may not have been cleared or approved by the U.S. Food and Drug Administration. The FDA has determined that such clearance or approval is not necessary. The above immunohistochemical/dualISH markers are ordered and reviewed by the Pathologist. INTERPRETATION: B. Pylorus, biopsy: Negative for Helicobacter pylori organisms. AM:ivelisse 04/23/2022
--- NOTE | 2022-04-22 06:38 | HP.PCM_ITS ---
History and Physical Date of Admission: 04/22/22 JENNIFER MAZARIEGOS, is a 56 F who presents to the office today for epigastric pain. The first episode was about 4 yrs ago, she recalls going to an ER, no cause found, she doesn't recall any imaging being done. The epigastric pain returned at the end of November, she had a severe episode, sudden onset w/ pain reaching a crescendo about an hour later, progressed to 8/10, had nausea but no vomiting, then explosive diarrhea and pain mostly abated. But since then the epigastric pain is intermittent, never as severe as the episode in November. Not related to eating. Doesn't radiate. No aggravating or relieving factors. She notes early satiety since last month. The pain seemed better with intermittent fasting which she doing it to stop post-menopausal weight gain, but then the pain returned. Normal appetite. No unexplained weight loss. No heartburn, no hx of GERD. No dysphagia. A small glass of grape juice will keep her bowels regular; has BM 1- 2x per day. No other diarrhea except with the episode of severe pain. Has had a full feeling in her lower anterior neck, not really a globus sensation; her PCP is aware, no mass or thyromegaly. Started on levothyroxine recently, will have f/u labs for thyroid, hyperlipidemia and HTN next month. She has never had an EGD or colonoscopy. No FH GI disorders. No alcohol, tobacco or drug use. She is very health conscious. ROS Const Constitutional: No fatigue ENT ENT: Positive for nasal congestion and sore throat; No difficulty swallowing Gastro GI: Positive for bloating and excessive flatus; No abdominal pain, belching, change in bowel habits, change in stool character, coffee ground emesis, constipation, cramping, diarrhea, heartburn, difficulty swallowing, feeling full early, incontinent of stools, Vomiting blood/hematemesis, Blood in stool, loose stools, Black,tarry stools, nausea/dyspepsia, pain with swallowing, vomiting or other Musc Musculoskeletal: Positive for joint pain, back pain and stiffness Skin Skin: No yellowing of the eye or itchy eyes Psych Psychiatric: Positive for anxiety and No depression Endo Endocrine: No fatigue Aller/Imm Allergy/Immunologic: No itchy eyes Jose Ramon/Lymp Hematologic/Lymphatic: No easy bleeding or easy bruising Exam Const General: cooperative, healthy appearing, well developed and well groomed [facility] Head: normal to inspection Eyes Conjunctivae: conjunctivae normal Sclera: sclerae normal Neck Neck: normal visual inspection, no lymphadenopathy, trachea midline, supple and no anterior neck swelling Thyroid: thyroid normal Chest Chest palpation & inspection: normal inspection of the chest Resp Effort & Inspection: normal respiratory effort GI Inspection: normal to inspection Auscultation: normal bowel sounds Palpation: soft and tender in the epigastrum Skin General: no rashes or lesions noted Neuro General: gait normal Extrem General: no pedal edema Psych Mental Status: mental status grossly normal Mood: congruent mood Quality Reporting Tobacco Screening ([facility] 138) Smoking Status: Never smoker Assessment and Plan Assessment and Plan (1) Epigastric pain: ?Status:?Acute (2) Diarrhea: ?Status:?Acute (3) Early satiety: ?Status:?Acute ? ? ? Orders:?Orders: ? Comprehensive Metabolic Profil Today R10.13 ? ? CBC W/Diff, Automated Today R10.13 ? ? Abdomen/Pelvis WITH Contrast 5 Days R10.13, R19.7, R68.81 ?Plan - Jyoti Jackson HOME CARE COMPANION, HOME CARE COMPANION-C: 56 yr old female with epigastric pain, the severity of which varies, x 2 months w/ early satiety. Severe episode of pain included diarrhea. DDx includes esophagitis, gastritis, peptic ulcer, duodenitis, malignancy, less likely GB or pancreas. Will get CT w/ oral and IV contast of abd and pel to evaluate stomach for mass, pancreas for mass or signs of pancreatitis, gallstones, other GI mass or inflammation. CBC and CMP today, may order more labs later. She will be scheduled for EGD and screening colonoscopy w/ f/u 2 wks later. She declines med such as H2 harvey or PPI for the pain I have re-examined the patient. There are no clinical changes since date of exam. I have re-examined the patient. There are no clinical changes since date of exam.
--- NOTE | 2022-04-22 07:16 | OP.EGD_ITS ---
Patient Name: Christina Prescott Procedure Date: 04/22/2022 6:22 AM Date of : 1965 Age: 56 Procedure: Upper GI endoscopy Indications: Epigastric abdominal pain, Dyspepsia Providers: Rashad Britt DO Medicines: Monitored Anesthesia Care Patient Profile: This is a 56 year old female. Refer to note in patient chart for documentation of history and physical. Patient has symptoms of chronic epigastric abdominal pain. Complications: No immediate complications. Procedure: Pre-Anesthesia Assessment: - Prior to the procedure, a History and Physical was performed, and patient medications and allergies were reviewed. The risks and benefits of the procedure and the sedation options and risks were discussed with the patient. All questions were answered and informed consent was obtained. Patient identification and proposed procedure were verified by the physician in the pre-procedure area. Mental Status Examination: alert and oriented. Airway Examination: normal oropharyngeal airway and neck mobility. Respiratory Examination: clear to auscultation. CV Examination: normal. Prophylactic Antibiotics: The patient does not require prophylactic antibiotics. Prior Anticoagulants: The patient has taken no previous anticoagulant or antiplatelet agents. After reviewing the risks and benefits, the patient was deemed in satisfactory condition to undergo the procedure. The anesthesia plan was to use moderate sedation / analgesia (conscious sedation). Immediately prior to administration of medications, the patient was re-assessed for adequacy to receive sedatives. The heart rate, respiratory rate, oxygen saturations, blood pressure, adequacy of pulmonary ventilation, and response to care were monitored throughout the procedure. The physical status of the patient was re-assessed after the procedure. After obtaining informed consent, the endoscope was passed under direct vision. Throughout the procedure, the patient's blood pressure, pulse, and oxygen saturations were monitored continuously. The Colonoscope was introduced through the mouth, and advanced to the second part of duodenum. The upper GI endoscopy was accomplished without difficulty. The patient tolerated the procedure well. Scope In: 6:44:40 AM Scope Out: 6:51:59 AM Total Procedure Duration Time 0 hours 7 minutes 19 seconds Findings: LA Grade A (one or more mucosal breaks less than 5 mm, not extending between tops of 2 mucosal folds) esophagitis with no bleeding was found 35 to 37 cm from the incisors. Biopsies were taken with a cold forceps for histology. Verification of patient identification for the specimen was done. Estimated blood loss was minimal. Patchy mildly congested mucosa was found in the cardia and in the gastric body. Biopsies were taken with a cold forceps for histology. Verification of patient identification for the specimen was done. Estimated blood loss was minimal. A few 2 mm sessile polyps with no stigmata of recent bleeding were found in the gastric fundus and in the gastric body. A benign-appearing, intrinsic moderate stenosis was found at the pylorus. This was traversed. A guide wire was placed, then the scope was withdrawn. Using the wire as a guide, dilation with a 15 mm pyloric balloon dilator was performed. The dilation site was examined and showed moderate improvement in luminal narrowing. Estimated blood loss was minimal. The first portion of the duodenum was normal. Biopsies were taken with a cold forceps for histology. Verification of patient identification for the specimen was done. Estimated blood loss was minimal. Impression: - LA Grade A reflux esophagitis. Biopsied. - Congestive gastropathy. Biopsied. - A few gastric polyps. - Gastric stenosis was found at the pylorus. Dilated. - Normal first portion of the duodenum. Biopsied. Recommendation: - Discharge patient to home. - Resume previous diet. - Continue present medications. - Await pathology results. Procedure Code(s): --- Professional --- 83228, Esophagogastroduodenoscopy, flexible, transoral; with dilation of gastric/duodenal stricture(s) (eg, balloon, bougie) 34884, 59,51, Esophagogastroduodenoscopy, flexible, transoral; with biopsy, single or multiple CPT copyright 2017 [employer]. All rights reserved. The codes documented in this report are preliminary and upon assistant produce manager review may be revised to meet current compliance requirements. Rashad Britt DO 04/22/2022 7:15:04 AM This report has been signed electronically. Number of Addenda: 1 Note Initiated On: 04/22/2022 6:22 AM Addendum Number: 1 Addendum Date: 07/07/2022 6:15:16 AM MAC was used as sedation for this procedure. Rashad Britt DO 07/07/2022 6:15:20 AM This report has been signed electronically.
--- NOTE | 2022-04-22 07:16 | OP.CCLET_ITS ---
07/07/2022 Leighton Alexander Md Re : Upper GI endoscopy procedure for Christina Prescott Dear Benjamin This procedure was performed on April. My impressions and recommendations are as follows: Impressions : - LA Grade A reflux esophagitis. Biopsied. - Congestive gastropathy. Biopsied. - A few gastric polyps. - Gastric stenosis was found at the pylorus. Dilated. - Normal first portion of the duodenum. Biopsied. Recommendations : - Discharge patient to home. - Resume previous diet. - Continue present medications. - Await pathology results. My findings are described in the full procedure note, which is enclosed. If I can be of further assistance, please feel free to contact me at . Sincerely, Rashad Britt, 04/22/2022 7:15:04 AM This report has been signed electronically.
--- NOTE | 2022-04-22 07:18 | OP.CCLET_ITS ---
07/07/2022 Leighton Alexander Md Re : Colonoscopy procedure for Christina Prescott Dear Benjamin This procedure was performed on April. My impressions and recommendations are as follows: Impressions : - Congested mucosa in the sigmoid colon, in the descending colon and at the hepatic flexure. Biopsied. - Congested mucosa in the terminal ileum. Biopsied. Recommendations : - Discharge patient to home. - Resume previous diet. - Continue present medications. - Await pathology results. - Repeat colonoscopy in 5 years for surveillance. My findings are described in the full procedure note, which is enclosed. If I can be of further assistance, please feel free to contact me at . Sincerely, Rashad Britt, 04/22/2022 7:18:12 AM This report has been signed electronically.
--- NOTE | 2022-04-22 07:18 | OP.COLON_ITS ---
Patient Name: Christina Prescott Procedure Date: 04/22/2022 6:52 AM Date of : 1965 Age: 56 Procedure: Colonoscopy Indications: Screening for colorectal malignant neoplasm Providers: Rashad Brtit DO Medicines: Monitored Anesthesia Care Patient Profile: This is a 56 year old female. Refer to note in patient chart for documentation of history and physical. Patient has symptoms of chronic epigastric abdominal pain. Last Colonoscopy: none. The patient's first colonoscopy is today. Complications: No immediate complications. Procedure: Pre-Anesthesia Assessment: - Prior to the procedure, a History and Physical was performed, and patient medications and allergies were reviewed. The risks and benefits of the procedure and the sedation options and risks were discussed with the patient. All questions were answered and informed consent was obtained. Patient identification and proposed procedure were verified by the physician in the pre-procedure area. Mental Status Examination: alert and oriented. Airway Examination: normal oropharyngeal airway and neck mobility. Respiratory Examination: clear to auscultation. CV Examination: normal. Prophylactic Antibiotics: The patient does not require prophylactic antibiotics. Prior Anticoagulants: The patient has taken no previous anticoagulant or antiplatelet agents. After reviewing the risks and benefits, the patient was deemed in satisfactory condition to undergo the procedure. The anesthesia plan was to use moderate sedation / analgesia (conscious sedation). Immediately prior to administration of medications, the patient was re-assessed for adequacy to receive sedatives. The heart rate, respiratory rate, oxygen saturations, blood pressure, adequacy of pulmonary ventilation, and response to care were monitored throughout the procedure. The physical status of the patient was re-assessed after the procedure. After I obtained informed consent, the scope was passed under direct vision. Throughout the procedure, the patient's blood pressure, pulse, and oxygen saturations were monitored continuously. The Colonoscope was introduced through the anus and advanced to the terminal ileum. The colonoscopy was performed without difficulty. The patient tolerated the procedure well. The quality of the bowel preparation was good. Scope In: 6:54:25 AM Scope Withdrawal Time 0 hours 10 minutes 1 second Scope Out: 7:07:27 AM Total Procedure Duration Time 0 hours 13 minutes 2 seconds Findings: The perianal and digital rectal examinations were normal. An area of mildly congested mucosa was found in the sigmoid colon, in the descending colon and at the hepatic flexure. Biopsies were taken with a cold forceps for histology. Verification of patient identification for the specimen was done. Estimated blood loss was minimal. A patchy area of the terminal ileum was congested. Biopsies were taken with a cold forceps for histology. Verification of patient identification for the specimen was done. Estimated blood loss was minimal. Impression: - Congested mucosa in the sigmoid colon, in the descending colon and at the hepatic flexure. Biopsied. - Congested mucosa in the terminal ileum. Biopsied. Recommendation: - Discharge patient to home. - Resume previous diet. - Continue present medications. - Await pathology results. - Repeat colonoscopy in 5 years for surveillance. Procedure Code(s): --- Professional --- 04815, Colonoscopy, flexible; with biopsy, single or multiple CPT copyright 2017 [employer]. All rights reserved. The codes documented in this report are preliminary and upon company driver review may be revised to meet current compliance requirements. Rashad Britt DO 04/22/2022 7:18:12 AM This report has been signed electronically. Number of Addenda: 1 Note Initiated On: 04/22/2022 6:52 AM Addendum Number: 1 Addendum Date: 07/07/2022 6:15:27 AM MAC was used as sedation for this procedure. Rashad Britt DO 07/07/2022 6:15:33 AM This report has been signed electronically.
== END 2022-04-22 08:12 | disposition home or self-care (01) ==
LOC: EN 05:25 → AC 05:26
PROVIDERS: PCP Family Medicine; Referring Provider Family Medicine; Visit Provider Internal Medicine Gastroenterology
PROC: 0DJD8ZZ Inspection of Lower Intestinal Tract, Via Natural or Artificial Opening Endoscopic (ICD-10-PCS; CPT 45378; principal; 2022-04-22 06:25)
DX: K29.50 Unspecified chronic gastritis without bleeding (principal); F32.A Depression, unspecified; E78.5 Hyperlipidemia, unspecified; I10 Essential (primary) hypertension; E03.8 Other specified hypothyroidism; Z79.899 Other long term (current) drug therapy; K21.00 Gastro-esophageal reflux disease with esophagitis, without bleeding; K76.0 Fatty (change of) liver, not elsewhere classified; K31.7 Polyp of stomach and duodenum; K31.1 Adult hypertrophic pyloric stenosis
CPT/HCPCS: 43245; 43239; 45380; 88305; 88313; 88342; J7120; J2405

== ENCOUNTER → 2022-05-19 | Outpatient (CLI) | payer OTHER, SELFPAY | END | disposition home or self-care (01) | PROVIDERS: PCP Family Medicine; Visit Provider Nurse Practitioner Adult Health | DX: K52.9 Noninfective gastroenteritis and colitis, unspecified (principal) | CPT/HCPCS: 36415 ==

== ENCOUNTER → 2022-12-15 | Outpatient (CLI) | payer OTHER, SELFPAY ==
--- NOTE | 2022-12-15 12:14 | BI_ITS ---
MAMMOGRAPHY - BILATERAL SCREENING 3-D TOMOSYNTHESIS REASON FOR EXAM: Female, 57 years old. Routine screening PERTINENT HISTORY: Mother with breast cancer.. TECHNIQUE: 2-D mammograms and 3-D Tomosynthesis of the breast (s) were performed. CAD was performed. COMPARISON: 10/22/2021 FINDINGS: The breast composition is heterogeneously dense that can obscure small breast masses. Scattered benign calcifications are seen. No dense spiculated masses or suspicious microcalcifications are identified. No architectural distortion is identified. There is no skin thickening or retraction. There has been no significant change since the prior study. BI/SCRN MAMM (CAD)W/WM BILAT IMPRESSION: No mammographic signs of malignancy. Routine yearly mammograms recommended. ASSESSMENT CATEGORY: BIRADS Category 2: Benign. A letter regarding these results will be sent to the patient by the facility within 30 days. FOLLOW UP RECOMMENDATION: Yearly follow up mammogram recommended. (A) Approximately 10% of breast cancers are not detected by mammography. A normal mammogram should not delay biopsy of a clinically suspicious abnormality. Electronically Signed: Kenny Billings MD at 12:59 EDT ,
== END | disposition home or self-care (01) ==
LOC: OPBI 12:12
PROVIDERS: PCP Family Medicine
DX: Z12.31 Encounter for screening mammogram for malignant neoplasm of breast (principal); Z80.3 Family history of malignant neoplasm of breast
CPT/HCPCS: 77063; 77067

== ENCOUNTER → 2023-12-30 | Outpatient (CLI) | payer BC, SELFPAY ==
--- NOTE | 2023-12-29 16:08 | BI_ITS ---
MAMMOGRAPHY - BILATERAL SCREENING REASON FOR EXAM: Female, 58 years old. Routine annual screening examination. PERTINENT HISTORY: Mother with breast cancer. Aunt with breast cancer. Remote right stereotactic breast biopsy. TECHNIQUE: Digital bilateral breast wm (3D mammographic acquisition) in the CC and MLO projections. 2-D mediolateral oblique (MLO) and craniocaudad (CC) views of both breasts were obtained. CAD: Full Field Digital Mammography with Computer Added Detection was performed. COMPARISON: Comparison is made with prior study December 15, 2022 and October 22, 2021. FINDINGS: Breast Composition: The breasts are heterogeneously dense, which may obscure small masses. There are no dominant masses or suspicious calcifications. Once again, there are 2 adjacent tissue markers in the upper outer aspect of the right breast incomplete with prior stereotactic breast biopsy. No other significant abnormalities are identified. There has been no significant change since the prior study. BI/SCRN MAMM (CAD)W/WM BILAT IMPRESSION: Stable bilateral screening mammogram. Yearly follow-up mammogram recommended. (A) ASSESSMENT CATEGORY: BIRADS Category 2: Benign. A letter regarding these results will be sent to the patient by the facility within 30 days. Approximately 10% of breast cancers are not detected by mammography. A normal mammogram should not delay biopsy of a clinically suspicious abnormality. [id number] Electronically Signed: Bam Cardenas MD at 7:59 EDT ,
== END | disposition home or self-care (01) ==
LOC: OPBI 07:05
PROVIDERS: PCP Family Medicine
DX: Z12.31 Encounter for screening mammogram for malignant neoplasm of breast (principal); Z80.3 Family history of malignant neoplasm of breast
CPT/HCPCS: 77063; 77067

== ENCOUNTER 2024-07-09 19:11 | Emergency (ER) | payer BC, SELFPAY ==
[2024-07-09] VITALS (7 sets, daily range): BP systolic 136–190; BP diastolic 70–89; PULSE 12–74; RESP 10–53; TEMP 35.8–36.1; O2SAT 96–100; BMI 26.4
--- NOTE | 2024-07-09 19:59 | EKG12_ITS ---
Test Reason : CHEST OTHER Blood Pressure : / mmHG Vent. Rate : 056 BPM Atrial Rate : 056 BPM P-R Int : 124 ms QRS Dur : 086 ms QT Int : 408 ms P-R-T Axes : 027 028 036 degrees QTc Int : 393 ms Sinus bradycardia Otherwise normal ECG Confirmed by Justin Brandt ([id number]), photographic editor BEATA GALVIN ([id number]) on 07/11/2024 6:41:30 AM Referred By: Confirmed By:Justin Brandt
--- NOTE | 2024-07-09 20:16 | EDS_ITS ---
HPI <MICKIE Lewis - Last Filed: 07/09/24 21:40> History of Present Illness Chief Complaint: Chest Pain Narrative Narrative: Patient is a 58-year-old female with history of hyperlipidemia, hypothyroidism who does have whitecoat syndrome, and states her blood pressure is always elevated, however when she takes it at home it is normally below 130 systolic over 70. Patient states over the last 2 months, she has been having intermittent chest pain, shortness of breath. Over the last 2 to 3 days, she feels like the shortness of breath has been worse and she has more pressure on her chest. She denies any specific nausea, diaphoresis. She denies any s ignificant family history. She states that she can just be sitting there and the pain would occur. Today was most of the afternoon and she is here for evaluation. PFSH <MICKIE Lewis - Last Filed: 07/09/24 21:40> [facility] Medical History Abdominal pain Anxiety Back pain Carpal tunnel syndrome Depression Easy bruising Epigastric pain Fatty liver GERD (gastroesophageal reflux disease) Heart murmur History of edema History of irregular heartbeat Hypertension Leg cramps Non-smoker Right foot pain Subclinical hypothyroidism Thyroid disease Home Medications ?Medication ?Instructions ?Recorded ?Last Taken ?Type COLLLAGEN RENEW POWDER 1 packet PO DAILY 01/28/21 Unknown History biotin 5,000 mcg disintegrating 10,000 mcg PO DAILY 01/28/21 Unknown History tablet Juan's wort 450 mg capsule 600 mg PO DAILY 05/06/21 Unknown History potassium chloride 20 mEq oral 20 meq PO BID #100 ea 07/28/21 Unknown Rx packet levothyroxine 50 mcg capsule 50 mcg PO DAILY 01/28/22 Unknown History multivitamin 1 cap PO DAILY 04/20/22 Unknown History pantoprazole 40 mg tablet,delayed 40 mg PO DAILY #30 tabs 05/03/22 Unknown Rx release (Protonix) Allergy/AdvReac Type Severity Reaction Status Date / Time No Known Allergies Allergy Verified 07/09/24 19:11 Family History Mother Hypertension Diabetes Breast cancer Father Alzheimer's dementia Grandfather Myocardial infarction Hodgkins lymphoma Grandmother Cancer Sister plasma cell neoplasma myloma Surgical History History of breast biopsy Hx of tubal ligation Social History Smoking Status: Never smoker alcohol intake: never substance use type: does not use caffeine: Yes (rarely) what type of physical activity do you participate in: walking and yoga frequency: 1-2 times per week seatbelt use: always do you feel safe at home: Yes additional social history: - [employer] 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 Positive for chest pain, chest tightness Respiratory: Negative for any cough, sputum production, hemoptysis, dyspnea on exertion, orthopnea. Positive for intermittent dyspnea Gastrointestinal: Negative for any abdominal pain, nausea, vomiting, diarrhea, constipation, blood in stool, blood in vomit : Negative for any urinary frequency, dysuria, retention, blood in urine Muscle skeletal: Negative for any neck pain, back pain Neurological: Negative for any headache, syncope, dizziness Skin: Negative for any rashes, itching, abrasions, lacerations Psychiatric: Negative for any depression, anxiety, stress, suicidal ideation, homicidal ideation Hematologic: Negative for any excessive bruising, easy bleeding EXAM <MICKIE Lewis - Last Filed: 07/09/24 21:40> Physical Exam Narrative Exam Narrative: Vital signs reviewed. HEET: Head normocephalic atraumatic, TMs clear bilaterally. Posterior pharynx is clear, moist mucous membranes. Nares clear bilaterally. Neck: Supple with no lymphadenopathy or tenderness. No signs of meningismus. Cardiac: Regular rate and rhythm no murmurs gallops or rubs, equal peripheral pulses bilaterally. Respiratory: Lungs clear to auscultation bilaterally. No chest tenderness. Abdomen: Soft, nontender, nondistended. No abdominal bruit or pulsatile masses. No hepatosplenomegaly Extremities: No peripheral edema, no signs of gross trauma or deformity. Active full range of motion of all extremities. Neuro: Cranial nerves II through XII intact, no focal neurological deficits. Skin: Clean dry and intact with no rash, purpura, petechiae, vesicles or pustules. Backs/flank: No CVA tenderness, no midline spinal tenderness, no deformity. Psych: Normal mood and affect. No SI, HI or acute psychosis. Const Vital Signs: 07/09/24 19:11 07/09/24 20:11 07/09/24 20:31 Temperature 96.5 F L Temperature Source Temporal Pulse Rate 74 58 L Respiratory Rate 16 12 Respiratory Effort Blood Pressure 190/89 H 163/80 H Blood Pressure Mean 122 107 Pulse Ox 100 98 98 Oxygen Delivery Method Room Air Room Air 07/09/24 20:31 07/09/24 21:15 07/09/24 22:00 Temperature Temperature Source Pulse Rate 57 L 12 L Respiratory Rate 10 L 53 H Respiratory Effort Normal Non-Labored Blood Pressure 156/84 H 143/70 H Blood Pressure Mean 104 94 Pulse Ox 96 Oxygen Delivery Method Room Air 07/09/24 23:00 07/09/24 23:13 Temperature 97 F L Temperature Source Pulse Rate 54 L 54 L Respiratory Rate 14 14 Respiratory Effort Blood Pressure 136/73 H 136/73 H Blood Pressure Mean 94 94 Pulse Ox 99 Oxygen Delivery Method Positive well nourished and well developed General Appearance ED: well developed <Dr. Mark Antonio, DO - Last Filed: 07/10/24 00:12> Physical Exam Const Vital Signs: 07/09/24 19:11 07/09/24 20:11 07/09/24 20:31 Temperature 96.5 F L Temperature Source Temporal Pulse Rate 74 58 L Respiratory Rate 16 12 Respiratory Effort Blood Pressure 190/89 H 163/80 H Blood Pressure Mean 122 107 Pulse Ox 100 98 98 Oxygen Delivery Method Room Air Room Air 07/09/24 20:31 07/09/24 21:15 07/09/24 22:00 Temperature Temperature Source Pulse Rate 57 L 12 L Respiratory Rate 10 L 53 H Respiratory Effort Normal Non-Labored Blood Pressure 156/84 H 143/70 H Blood Pressure Mean 104 94 Pulse Ox 96 Oxygen Delivery Method Room Air 07/09/24 23:00 07/09/24 23:13 Temperature 97 F L Temperature Source Pulse Rate 54 L 54 L Respiratory Rate 14 14 Respiratory Effort Blood Pressure 136/73 H 136/73 H Blood Pressure Mean 94 94 Pulse Ox 99 Oxygen Delivery Method MDM <Jose EdouardMICKIE - Last Filed: 07/09/24 21:40> [facility] Lab Data Labs: Laboratory Results - last 24 hr 07/09/24 07/09/24 07/09/24 20:16 20:19 22:21 WBC 6.1 RBC 4.26 Hgb 12.9 Hct 38.5 MCV 90.4 MCH 30.3 MCHC 33.5 RDW Std Deviation 39.4 RDW Coeff of Aubrey 12.0 Plt Count 183 MPV 8.9 Immature Gran % (Auto) 0.200 Neut % (Auto) 32.8 L Lymph % (Auto) 59.2 H Kerr % (Auto) 6.4 Eos % (Auto) 1.1 Baso % (Auto) 0.3 Absolute Neuts (auto) 2.0 Absolute Lymphs (auto) 3.62 Nucleated RBC % 0 D-Dimer Quant (PE/DVT) 0.36 Sodium 141 Potassium 3.8 Chloride 109 H Carbon Dioxide 27.0 Anion Gap 6 BUN 15 Creatinine 0.87 Estim Creat Clear Calc 57.73 Est GFR (MDRD) Af Amer 86 Est GFR (MDRD) Non-Af 71 BUN/Creatinine Ratio 17.2 Glucose 91 Calcium 9.5 Troponin I High Sens 5 4 TSH 0.381 Radiography Diagnostic Testing: Clinical Impression(s) from Imaging Studies Chest X-Ray 07/09/24 20:30 IMPRESSION: No radiographic evidence of acute cardiopulmonary disease. Electronically Signed: David Ramirez DO at 21:06 EDT Reading Location ID and State: [facility] / [place] Tel [phone], Service support , EKG EKG shows sinus bradycardia: Attestation: I personally reviewed and interpreted this EKG as follows: Interpretation: Sinus Rhythm Comments: Sinus bradycardia, rate of 56 bpm, AZ interval 124 ms, QRS duration 86 ms Treatment and Re-Evaluation :: Differential diagnosis includes however is not limited to: ACS, AZ, PE, community-acquired pneumonia, NSTEMI electrode abnormality, anxiety Patient appears generally well, vital signs are stable, patient is nontoxic- appearing. Presenting to the emergency department for complaints of chest pain, chest tightness, dyspnea as been occurring over a 2-month period. Patient will receive a cardiac workup including 2 troponins, TSH, basic laboratory values. Chest x-ray will be obtained. At this time, patient states she feels a slight pressure however no significant pain at this time. All radiologic examinations were read, reviewed by the emergency department attending. From these reads, a plan of care will be put in place. Patient's lab values show a normal CBC, patient's chemistries show a normal chemistry panel, patient's TSH is 0.381, patient is aware and she states that she is working with her physician to keep decrease her dose of levothyroxine. Patient's troponin was negative at 5. D-dimer was negative. Chest x-ray showed no acute process. At this time, patient will receive a second troponin, as long as this is negative, the patient be discharged home. Patient will need to follow-up outpatient with her PCP for stress test. Patient is agreeable, instructed return for any worsening symptoms. <Dr. Mark Antonio, DO - Last Filed: 07/10/24 00:12> [facility] History & Record Review Discussion w/independent historian: Patient and Significant other Lab Data Attestation: I reviewed the patient's lab results. Labs: Laboratory Results - last 24 hr 07/09/24 07/09/24 07/09/24 20:16 20:19 22:21 WBC 6.1 RBC 4.26 Hgb 12.9 Hct 38.5 MCV 90.4 MCH 30.3 MCHC 33.5 RDW Std Deviation 39.4 RDW Coeff of Aubrey 12.0 Plt Count 183 MPV 8.9 Immature Gran % (Auto) 0.200 Neut % (Auto) 32.8 L Lymph % (Auto) 59.2 H Kerr % (Auto) 6.4 Eos % (Auto) 1.1 Baso % (Auto) 0.3 Absolute Neuts (auto) 2.0 Absolute Lymphs (auto) 3.62 Nucleated RBC % 0 D-Dimer Quant (PE/DVT) 0.36 Sodium 141 Potassium 3.8 Chloride 109 H Carbon Dioxide 27.0 Anion Gap 6 BUN 15 Creatinine 0.87 Estim Creat Clear Calc 57.73 Est GFR (MDRD) Af Amer 86 Est GFR (MDRD) Non-Af 71 BUN/Creatinine Ratio 17.2 Glucose 91 Calcium 9.5 Troponin I High Sens 5 4 TSH 0.381 Radiography Diagnostic Testing: Clinical Impression(s) from Imaging Studies Chest X-Ray 07/09/24 20:30 IMPRESSION: No radiographic evidence of acute cardiopulmonary disease. Electronically Signed: David Ramirez DO at 21:06 EDT Reading Location ID and State: [facility] / [place] Tel [phone], Service support , Treatment and Re-Evaluation :: Differential diagnosis includes however is not limited to: ACS, AZ, PE, community-acquired pneumonia, NSTEMI electrode abnormality, anxiety Patient appears generally well, vital signs are stable, patient is nontoxic- appearing. Presenting to the emergency department for complaints of chest pain, chest tightness, dyspnea as been occurring over a 2-month period. Patient will receive a cardiac workup including 2 troponins, TSH, basic laboratory values. Chest x-ray will be obtained. At this time, patient states she feels a slight pressure however no significant pain at this time. All radiologic examinations were read, reviewed by the emergency department attending. From these reads, a plan of care will be put in place. Patient's lab values show a normal CBC, patient's chemistries show a normal chemistry panel, patient's TSH is 0.381, patient is aware and she states that she is working with her physician to keep decrease her dose of levothyroxine. Patient's troponin was negative at 5. D-dimer was negative. Chest x-ray showed no acute process. At this time, patient will receive a second troponin, as long as this is negative, the patient be discharged home. Patient will need to follow-up outpatient with her PCP for stress test. Patient is agreeable, instructed return for any worsening symptoms. I have personally performed a face to face assessment of the patient and have reviewed the COURTNEY Note. I performed a substantive portion of the visit including all aspects of the following. My durbin findings include: History is 58-year-old female presenting with atypical chest pain. Patient notes that it seemed to get progressive during the day and had a component of pressure to it. Recent stressors in her life. She notes a history hypertension hyperlipidemia and is not currently treated for hypertension. She is a non- smoker. No DVT PE risk factors Exam is nonfocal noted to be hypertensive but has come down on its own without treatment. Heart regular without murmur lung sounds are clear and equal. Medical Decison Making EKG is in normal sinus rhythm. 2 sets of cardiac enzymes are negative D-dimer is within normal limits. Patient's chest x-ray my interpretation shows a normal mediastinal silhouette no acute findings. Patient will be discharged home to follow-up with primary care for possible cardiac stress testing Discharge Plan Triage Chief Complaint: Chest Pain ED Midlevel Provider: Jose Edouard ED Provider: Mark Antonio Dx/Rx/DC Orders Clinical Impression: Chest pain, Dyspnea Instructions: ED Chest Pain, Noncardiac, ED Dyspnea Prescriptions: No Action biotin 5,000 mcg tablet,disintegrating 10,000 mcg PO DAILY COLLLAGEN RENEW POWDER 1 packet PO DAILY Hamilton's wort 450 mg capsule 600 mg PO DAILY levothyroxine 50 mcg capsule 50 mcg PO DAILY multivitamin Capsule 1 cap PO DAILY potassium chloride 20 mEq packet 20 meq PO BID Qty: 100 3RF pantoprazole [Protonix] 40 mg tablet,delayed release (DR/EC) 40 mg PO DAILY Qty: 30 0RF Primary Care Provider: Leighton Alexander Referrals: Leighton Alexander MD [Primary Care Provider] - Activity Restrictions/Additional Instructions: Please continue to follow-up outpatient. Call your primary care doctor to set up a stress test. Print Language: Cameroonian Disposition Disposition: Home, Self Care Discharge Date/Time: 07/09/24 23:41
[2024-07-09 20:25] LABS: Absolute Lymphocyte Count 3.62 X10^3/uL (0.83-4.51); Basophil# 0.02 X10^3/uL; Basophil% 0.3 % (0-1); Eosinophil# 0.07 X10^3/uL; Eosinophils% 1.1 % (0-5); Hematocrit 38.5 % (37-47); Hemoglobin 12.9 g/dL (12.0-15.0); Lymphocyte # 3.62 X10^3/ul (0.83-4.51); Lymphocyte % 59.2 % (19-41); Mean Corp Hgb Conc 33.5 g/dL (32-36); Mean Corpuscular Hgb 30.3 pg (27.0-32.0); Mean Corpuscular Volume 90.4 fL (81-99); Mean Platelet Vol. 8.9 fl (6.2-12.0); Monocyte# 0.39 X10^3/uL; Monocyte% 6.4 % (0-10); NRBC Flagged by Analyzer 0 % (0-5); Neutrophil % 32.8 % (47-70); Platelet Count 183 K/mm3 (150-450); RBC Distribution Width SD 39.4 fl (35.1-43.9); Red Blood Count 4.26 M/mm3 (4.2-5.4); White Blood Count 6.1 K/mm3 (4.4-11.0)
--- NOTE | 2024-07-09 20:30 | RAD_ITS ---
INDICATION: chest pain EXAMINATION/TECHNIQUE: X-RAY - XR Chest 1 View COMPARISON: FINDINGS: LINES/DEVICES: None. LUNGS: No consolidation, edema or effusion. No pneumothorax. MEDIASTINUM AND CARDIOVASCULAR STRUCTURES: Cardiac silhouette not enlarged. Central airways and mediastinal contour are unremarkable. BONES AND SOFT TISSUES: Unremarkable. RAD/Chest 1 View (Portable) IMPRESSION: No radiographic evidence of acute cardiopulmonary disease. Electronically Signed: David Ramirez DO at 21:06 EDT Reading Location ID and State: [facility] / [place] Tel [phone], Service support ,
[2024-07-09 20:49] LABS: Anion Gap 6 (5-15); BUN 15 mg/dL (7-18); BUN/Creat Ratio 17.2 RATIO (10-20); Calcium,Total 9.5 mg/dL (8.5-10.1); Chloride 109 mmol/L (98-107); Creatinine, Serum 0.87 mg/dL (0.55-1.02); EST Glomerular Filtration Rate 71 mL/min (>60); Est Glom Filt Rate - Afr Amer 86 mL/min (>60); Estimated Creatinine Clearance 57.73 ml/min; Glucose 91 mg/dL (74-106); Potassium 3.8 mmol/L (3.5-5.1); Sodium Level 141 mmol/L (136-145); Thyroid Stim Hormone (TSH) 0.381 uIU/mL (0.358-3.740); Troponin-I HS (w/2H Reflex) 5 pg/mL (3.0-54.0)
[2024-07-09 21:00] LABS: D-Dimer Quantitative (DVT/PE) 0.36 FEU/ug/m (0.27-0.49)
[2024-07-09 22:19] LABS: Reflex Troponin-HS? (from REC) Y
[2024-07-09 23:03] LABS: Troponin-I HS 4 pg/mL (3.0-54.0)
== END 2024-07-09 23:41 | disposition home or self-care (01) ==
PROVIDERS: Nurse Practitioner; Emergency Provider Emergency Medicine; PCP Family Medicine; Visit Provider Emergency Medicine
DX: R07.9 Chest pain, unspecified (principal); I10 Essential (primary) hypertension; R06.00 Dyspnea, unspecified; E78.5 Hyperlipidemia, unspecified; E03.9 Hypothyroidism, unspecified; Z79.899 Other long term (current) drug therapy; K21.9 Gastro-esophageal reflux disease without esophagitis; Z98.51 Tubal ligation status
CPT/HCPCS: 71045; 80048; 84443; 84484; 85025; 85379; 93005; 99284; A4216

== ENCOUNTER → 2024-07-31 | Outpatient (CLI) | payer BC, SELFPAY ==
--- NOTE | 2024-07-31 10:40 | STE_ITS ---
Reason For Study: Atypical chest pain and Dyspnea on Exertion Stress Results Protocol: Stress Echocardiogram-Kyle Protocol Maximum Predicted HR: 162 bpm Target HR: 138 bpm % Maximum Predicted HR: 91 % Heart Stage Duration Rate BP Comment (mm:ss) (bpm) Baseline 97 142/84Patient denies chest pain Stage 1 3:00 105 158/82Patient denies chest pain Stage 2 3:00 122 162/82Patient denies chest pain Patient complains of dull chest discomfort midsternal and left chest Stage 3 2:11 148 164/82rated 310. Mild shortness of breath. Recovery 81 130/92Patient denies chest pain Stress Duration: 8:11 mm:ss Maximum Stress HR: 148 bpm Baseline Echocardiogram Findings Stress Echo Wall motion Data Resting WM Intermediate WM Stress WM Time Measurements MV dec time: 0.16 sec Doppler Measurements & Calculations MV E max dillon: 61.5 cm/sec MV dec slope: 396.4 cm/sec2 TR max dillon: 248.8 cm/sec MV A max dillon: 103.3 cm/sec TR max P.8 mmHg MV E/A: 0.59 ECHO/Stress Test Echo w/o Contrast Interpretation Summary Exercise stress echo. 58-year-old lady with a history of shortness of breath Resting EKG demonstrates sinus rhythm with a rate of 77 bpm. The patient exerci sed according to regular Kyle protocol for total duration of 8 minutes and 11 seconds completin g 2 minutes and 11 seconds into stage III of the Kyle protocol. The maximum heart rate attained w as 148 bpm which was 91% of maximum predicted heart rate the maximum workload was 10.1 metabolic equ ivalents. At rest there were no ST or T wave changes noted suggest ischemia and at peak exercise there was less than [address] depression noted not diagnostic of ischemia. Patient denied chest disc omfort during most of the test except for other zenith where there was mild chest discomfort noted. T his resolved promptly on discontinuation of the test. The peak blood pressure was 164/82 which was a normal blood pressure response to exercise. Stress echocardiogram. The resting echocardiogram demonstrated low normal left ventricular systolic function between 50 and 55% and during exercise there was thickening of all wal ls and reduction of the ventricular cavity size peaking to approximately 60%. No wall motion abnorm alities were noted. Conclusion: Exercise stress echo with no EKG criteria for ischemia. Low normal resting echocardiographic findings with preserved function with exer cise Ordering Physician: Leighton Alexander Referring Physician: Leighton Alexander Performed By: LAWRENCE
== END | disposition home or self-care (01) ==
PROVIDERS: PCP Family Medicine; Referring Provider Family Medicine; Visit Provider Family Medicine
DX: R07.89 Other chest pain (principal); R06.09 Other forms of dyspnea
CPT/HCPCS: 93017; 93350

== ENCOUNTER 2025-01-03 17:15 | Outpatient (CLI) | payer OTHER, SELFPAY ==
--- NOTE | 2025-01-03 16:45 | BI_ITS ---
EXAM: SCRN MAMM (CAD)W/WM BILAT 01/03/2025 CLINICAL HISTORY: F, Age 59 y/o , SCREEN TECHNIQUE: Bilateral screening digital breast tomosynthesis with 2D and 3D images. Computer aided detection. COMPARISON: Prior exam(s) dated 12/21/2023. FINDINGS: TISSUE DENSITY: The breast tissue is heterogenously dense, which may obscure small masses. The mammogram demonstrates that the patient has dense breasts. Supplemental screening with whole breast ultrasound or MRI may be considered for further evaluation. Bilateral Breast Mammographic Findings: No significant masses, calcifications or other abnormalities are identified. BI/SCRN MAMM (CAD)W/WM BILAT IMPRESSION: Right Breast: BIRADS 1 NEGATIVE. Left Breast: BIRADS 1 NEGATIVE. OVERALL FINAL ASSESSMENT: BIRADS 1 NEGATIVE. RECOMMENDATION: Routine annual follow-up in 1 Year A letter with findings and recommendations will be mailed to the patient. Reading Location: [id number]
== END 2025-01-03 23:00 | disposition home or self-care (01) ==
LOC: OPBI 01-25 16:37
PROVIDERS: PCP Family Medicine; Referring Provider Nurse Practitioner Family; Visit Provider Nurse Practitioner Family
DX: Z12.31 Encounter for screening mammogram for malignant neoplasm of breast (principal)
CPT/HCPCS: 77063; 77067